=== PATIENT | female | born 1985 | race African-American/Black ===

== ENCOUNTER 2019-11-24 15:22 | Emergency (ER) | payer MEDICAID ==
[~2019-11-24] VITALS: Ht 157.5 cm; Wt 57.0 kg
[2019-11-24 15:55] VITALS: BP 117/72
[2019-11-24 16:10] LABS: BILIRUBIN,URINE NEGATIVE (NEG); CLARITY,URINE CLEAR; COLOR,URINE YELLOW; NITRITE,URINE NEGATIVE (NEG); PH,URINE 5.5 (<5.0-8.0); PROTEIN,URINE NEGATIVE (NEG-TRACE)
[2019-11-24 16:11] LABS: BASO % 0 % (0-3); EOS # 0.1 x10^3/uL (0.0-0.7); EOS % 1 % (0-3); HEMATOCRIT 39.2 % (36.0-47.0); HEMOGLOBIN 13.1 g/dL (12.0-15.5); LYMPH # 2.8 x10^3/uL (1.0-4.8); LYMPH % 45 % (24-48); MEAN CORPUSCULAR HEMOGLOBIN 28 pg (25-35); MEAN CORPUSCULAR HGB CONC 34 g/dL (31-37); MEAN CORPUSCULAR VOLUME 84 fL (79-100); MONO # 0.3 x10^3/uL (0.0-1.1); MONO % 5 % (0-9); NEUT % 49 % (31-73); PLATELET COUNT 253 x10^3/uL (140-400); RED BLOOD COUNT 4.65 x10^6/uL (3.50-5.40); RED CELL DISTRIBUTION WIDTH 13.4 % (11.5-14.5); WHITE BLOOD COUNT 6.2 x10^3/uL (4.0-11.0)
[2019-11-24 16:16] LABS: BACTERIA,URINE FEW /HPF (0-FEW); RBC,URINE TNTC /HPF (0-2); WBC,URINE 0 /HPF (0-4)
--- NOTE | 2019-11-24 16:27 | NUR ---
@[id number] rn at bs to doppler fhts per ER nurse request. pt talking on phone calm and cooperative. RN unable to obtain fhts due to pt early gestational age.
[2019-11-24 17:29] LABS: PLT ESTIMATE ADEQUATE (ADEQUATE)
--- NOTE | 2019-11-24 17:51 | RAD ---
Study: US OB <14 WKS W/TV DATE: 11/24/2019 3:42 PM INDICATION: Vaginal bleeding in the setting of a beta-hCG measurement of 61. COMPARISON: None. TECHNIQUE: Transabdominal and transvaginal ultrasonography of the pelvis was performed. Color Doppler and duplex were utilized as appropriate. FINDINGS: The uterus is measured at 8.9 x 6.5 x 5.3 cm. The endometrium is measured at 1 cm in thickness. No intrauterine gestational sac is identified or fluid within the endometrial canal. A small uterine fibroid measures 1.2 x 1.2 x 1.2 cm. The uterus is retroverted. The right ovary measures 4.2 x 1.8 x 2.9 cm and the left ovary 3.8 x 2.7 x 2.2 cm. Doppler flow is maintained to both ovaries. No intraovarian finding is identified that exhibits features typical of an ectopic. There are some small avascular cystic foci adjacent to both ovaries with surrounding free fluid but without associated Doppler flow. IMPRESSION: 1. No intrauterine gestational sac is seen however one would not be expected to be identified given the beta hCG value of 61. No definite ectopic . Based off this study alone, considerations include an early viable intrauterine , a failed first trimester or nonvisualized ectopic. 2. Small cystic foci adjacent to both ovaries with some surrounding fluid. This could in part be due to paraovarian cysts and the fluid physiologic. Again the findings are not typical of an ectopic. Especially if there is ongoing vaginal bleeding recommend short-term follow-up and trending of the beta hCG. 3. Small uterine fibroid measuring up to 1.2 cm. Electronically signed by: RUBY MALAVE MD (11/24/2019 5:48 PM) [id number]
--- NOTE | 2019-11-24 17:52 | PHYS DOC ---
Past Medical History Past Medical History: No Pertinent History (HOMER NGUYEN MD) Past Surgical History: Other Additional Past Surgical Histo: cyst removal in breasts (HOMER NGUYEN MD) Smoking Status: Current Every Day Smoker Alcohol Use: None (HOMER NGUYEN MD) General Adult EDM: Chief Complaint: VAGINAL BLEEDING HPI: HPI: Patient is a 34-year-old G3, P2 at 8 weeks gestation who presents the emergency room complaining of heavy vaginal bleeding and abdominal cramping. This started yesterday and has gotten significantly worse. She has never had issues in previous . She has not yet had her first ultrasound. She is due to have her ultrasound on Monday. She has not had any urinary symptoms. She denies any other complaints. (HOMER NGUYEN MD) Review of Systems: Review of Systems: General: Denies fever, chills, sweats, fatigue Eyes: Denies drainage, blurred vision, eye redness HENT: Denies rhinorrhea, sore throat, earache Respiratory: Denies cough, shortness of breath, wheezing Cardiac: Denies edema, palpitations, chest pain GI: Denies nausea, vomiting. Reports abdominal cramping, vaginal bleeding MSK: Denies back pain, neck pain Skin: Denies rash, jaundice Neuro: Denies headache, dizziness Psychiatric: Denies SI/HI (HOMER NGUYEN MD) Heart Score: Risk Factors: Risk Factors: DM, Current or recent (<one month) smoker, HTN, HLP, family history of CAD, obesity. Risk Scores: Score 0 - 3: 2.5% MACE over next 6 weeks - Discharge Home Score 4 - 6: 20.3% MACE over next 6 weeks - Admit for Clinical Observation Score 7 - 10: 72.7% MACE over next 6 weeks - Early Invasive Strategies (HOMER NGUYEN MD) Physical Exam: PE: General: Awake, alert, NAD. Well Nourished, well hydrated. Cooperative HEENT: Atraumatic, EOMI, PERRL, airway patent, moist oral mucosa Neck: Supple, trachea midline Respiratory: CTA bilaterally, normal effort, no wheezing/crackles CV: RRR, no murmur, cap refill <2 GI: Soft, nondistended, nontender, no masses MSK: No obvious deformities Skin: Warm, dry, intact Neuro: A&O x3, speech NL, sensory and motor grossly intact, no focal deficits Psych: Normal affect, normal mood, not suicidal or homicidal (HOMER NGUYEN MD) Current Patient Data: Labs: Laboratory Tests Test 11/24/19 15:36 11/24/19 16:00 Urine Collection Type Unknown Urine Color Yellow Urine Clarity Clear Urine pH 5.5 (<5.0-8.0) Urine Specific Venus 1.025 (1.000-1.030) Urine Protein Negative mg/dL (NEG-TRACE) Urine Glucose (UA) Negative mg/dL (NEG) Urine Ketones (Stick) Trace mg/dL (NEG) Urine Blood Large (NEG) Urine Nitrite Negative (NEG) Urine Bilirubin Negative (NEG) Urine Urobilinogen Dipstick 1.0 mg/dL (0.2 mg/dL) Urine Leukocyte Esterase Negative (NEG) Urine RBC Tntc /HPF (0-2) Urine WBC 0 /HPF (0-4) Urine Squamous Epithelial Cells Few /LPF Urine Bacteria Few /HPF (0-FEW) Urine Mucus Slight /LPF White Blood Count 6.2 x10^3/uL (4.0-11.0) Red Blood Count 4.65 x10^6/uL (3.50-5.40) Hemoglobin 13.1 g/dL (12.0-15.5) Hematocrit 39.2 % (36.0-47.0) Mean Corpuscular Volume 84 fL (79-100) Mean Corpuscular Hemoglobin 28 pg (25-35) Mean Corpuscular Hemoglobin Concent 34 g/dL (31-37) Red Cell Distribution Width 13.4 % (11.5-14.5) Platelet Count 253 x10^3/uL (140-400) Neutrophils (%) (Auto) 49 % (31-73) Lymphocytes (%) (Auto) 45 % (24-48) Monocytes (%) (Auto) 5 % (0-9) Eosinophils (%) (Auto) 1 % (0-3) Basophils (%) (Auto) 0 % (0-3) Neutrophils # (Auto) 3.0 x10^3/uL (1.8-7.7) Lymphocytes # (Auto) 2.8 x10^3/uL (1.0-4.8) Monocytes # (Auto) 0.3 x10^3/uL (0.0-1.1) Eosinophils # (Auto) 0.1 x10^3/uL (0.0-0.7) Basophils # (Auto) 0.0 x10^3/uL (0.0-0.2) Platelet Estimate Adequate (ADEQUATE) Giant Platelets Few POC Urine HCG, Qualitative Hcg positive (Negative) Maternal Serum HCG Beta Subunit 61 mIU/mL (0-5) H Laboratory Tests 11/24/19 16:00 Vital Signs: Vital Signs Date Time Temp Pulse Resp B/P (MAP) Pulse Ox O2 Delivery O2 Flow Rate FiO2 11/24/19 15:55 98.6 101 16 117/72 (87) 100 Room Air 98.6 (HOMER NGUYEN MD) EKG: EKG: [] (HOMER NGUYEN MD) Radiology/Procedures: Radiology/Procedures: [] (HOMER NGUYEN MD) Course & Med Decision Making: Course & Med Decision Making Pertinent Labs and Imaging studies reviewed. (See chart for details) Patient is a 34-year-old G3, P2 at 8 weeks gestation who presents to the e mergency room with abdominal pain and vaginal bleeding. She has not yet had an ultrasound done. test is positive. Will order an ultrasound, beta- hCG, type and screen, CBC. Patient was discussed with oncoming physician who will assume care. (HOMER NGUYEN MD) Course & Med Decision Making I am signing this chart only out of administrative purposes, patient was never turned over to me and I was intimately assigned to this chart. (SINA FLAHERTY MD) Dragon Disclaimer: Dragon Disclaimer: This electronic medical record was generated, in whole or in part, using a voice recognition dictation system. (HOMER NGUYEN MD) Departure Departure Impression: Primary Impression: Vaginal bleeding during Disposition: HOME, SELF-CARE Condition: STABLE Referrals: RAUDEL PERSAUD MD (PCP) HOMER NGUYEN MD Nov 24, 2019 17:51 SINA FLAHERTY MD Nov 24, 2019 19:49
== END 2019-11-24 18:05 | disposition home or self-care (01) ==
LOC: ER 15:22
DX: O46.91 Antepartum hemorrhage, unspecified, first trimester (principal); R10.9 Unspecified abdominal pain; F17.200 Nicotine dependence, unspecified, uncomplicated; Z3A.01 Less than 8 weeks gestation of pregnancy
CPT/HCPCS: 36415; 76801; 76817; 81001; 81025; 84702; 85025; 86901; 99284